=== PATIENT | female | born 1990 | race Caucasian/White ===

== ENCOUNTER 2020-11-06 23:37 | Emergency (ER) | payer BC ==
[2020-11-07 00:35] LABS: Color,Urine Red
[2020-11-07 00:36] LABS: Appearance,Urine Bloody (Clear)
[2020-11-07 00:38] LABS: Basophils # (A) 0.1 k/uL (0-0.2); Basophils % (A) 0 %; Eosinophils # (A) 0.1 k/uL (0-0.7); Eosinophils % (A) 1 %; HCT 41.5 % (34.0-46.0); HGB 14.2 gm/dL (11.4-16.0); Lymphocytes # (A) 3.1 k/uL (1.0-4.8); Lymphocytes % (A) 17 %; MCH 28.2 pg (25.0-35.0); MCHC 34.3 g/dL (31.0-37.0); MCV 82.3 fL (80.0-100.0); Monocytes # (A) 1.2 k/uL (0-1.0); Monocytes % (A) 7 %; Neutrophils # (A) 13.2 k/uL (1.3-7.7); Neutrophils % (A) 74 %; Platelet Count 328 k/uL (150-450); RBC 5.04 m/uL (3.80-5.40); RDW 14.6 % (11.5-15.5); WBC 17.9 k/uL (3.8-10.6)
[2020-11-07 00:42] LABS: Mucus,Urine Few /hpf; RBC,Urine >182 /hpf (0-5); WBC,Urine 20 /hpf (0-5)
--- NOTE | 2020-11-07 00:56 | ED ---
General Adult HPI - General Chief complaint: Vaginal Bleeding Stated complaint: Vaginal bleeding, 9 weeks Time Seen by Provider: 11/06/20 23:51 Source: patient, family, RN notes reviewed Mode of arrival: wheelchair Limitations: no limitations - History of Present Illness Initial comments: 29-year-old female presents emergency Department chief complaint of vaginal bleeding early . Patient is A1 states that she's around 9 weeks . Patient states that her SNOW GROOMER is Dr. Oliver she states her appointment is on Monday. Patient states that she started having spotting last night but states around 8 PM this evening she started having heavy vaginal bleeding with clots. She states that she's having increasing abdominal cramping and pain. Patient states that she feels like she is miscarrying. Patient has no history of anemia denies any current medications other than vitamin. Patient does have slight nausea does not request any medications. - Related Data Allergies Allergy/AdvReac Type Severity Reaction Status Date / Time No Known Allergies Allergy Verified 11/06/20 23:42 Review of Systems ROS Statement: Those systems with pertinent positive or pertinent negative responses have been documented in the HPI. ROS Other: All systems not noted in ROS Statement are negative. Past Medical History Past Medical History: No Reported History History of Any Multi-Drug Resistant Organisms: None Reported Past Surgical History: Tonsillectomy Additional Past Surgical History / Comment(s): knee, hand, Past Psychological History: No Psychological Hx Reported Smoking Status: Never smoker Past Alcohol Use History: Occasional, Rare Past Drug Use History: None Reported General Exam Limitations: no limitations General appearance: alert, in no apparent distress Head exam: Present: atraumatic, normocephalic, normal inspection ENT exam: Present: normal exam, mucous membranes moist Neck exam: Present: normal inspection. Absent: tenderness, meningismus, lymphadenopathy Respiratory exam: Present: normal lung sounds bilaterally. Absent: respiratory distress, wheezes, rales, rhonchi, stridor Cardiovascular Exam: Present: normal rhythm, tachycardia, normal heart sounds. Absent: systolic murmur, diastolic murmur, rubs, gallop, clicks GI/Abdominal exam: Present: soft, tenderness, normal bowel sounds. Absent: distended, guarding, rebound, rigid Back exam: Absent: CVA tenderness (R), CVA tenderness (L) Neurological exam: Present: alert, oriented X3 Skin exam: Present: warm, dry, intact, normal color. Absent: rash Course Vital Signs 11/06/20 11/07/20 11/07/20 23:42 00:05 00:15 Temperature 98.9 F Pulse Rate 129 H 82 88 Respiratory 16 18 16 Rate Blood Pressure 116/76 101/39 101/75 O2 Sat by Pulse 99 97 98 Oximetry 11/07/20 01:07 Temperature Pulse Rate 88 Respiratory 16 Rate Blood Pressure 111/70 O2 Sat by Pulse 98 Oximetry Medical Decision Making - Medical Decision Making 29-year-old presented for vaginal bleeding early . Patient ultrasound does not reveal an intrauterine . Patient is having an active miscarr iage. Patient's states she feels improved be discharged with follow-up with her own joint on Monday at her scheduled appointment - Lab Data Result diagrams: 11/06/20 23:55 11/06/20 23:55 Lab Results 11/06/20 11/06/20 11/06/20 Range/Units 23:55 23:55 23:55 WBC 17.9 H (3.8-10.6) k/uL RBC 5.04 (3.80-5.40) m/uL Hgb 14.2 (11.4-16.0) gm/dL Hct 41.5 (34.0-46.0) % MCV 82.3 (80.0-100.0) fL MCH 28.2 (25.0-35.0) pg MCHC 34.3 (31.0-37.0) g/dL RDW 14.6 (11.5-15.5) % Plt Count 328 (150-450) k/uL MPV 8.0 Neutrophils % 74 % Lymphocytes % 17 % Monocytes % 7 % Eosinophils % 1 % Basophils % 0 % Neutrophils # 13.2 H (1.3-7.7) k/uL Lymphocytes # 3.1 (1.0-4.8) k/uL Monocytes # 1.2 H (0-1.0) k/uL Eosinophils # 0.1 (0-0.7) k/uL Basophils # 0.1 (0-0.2) k/uL Sodium 135 L (137-145) mmol/L Potassium 4.1 (3.5-5.1) mmol/L Chloride 104 (98-107) mmol/L Carbon Dioxide 22 (22-30) mmol/L Anion Gap 9 mmol/L BUN 9 (7-17) mg/dL Creatinine 0.59 (0.52-1.04) mg/dL Est GFR (CKD-EPI)AfAm >90 (>60 ml/min/1.73 sqM) Est GFR (CKD-EPI)NonAf >90 (>60 ml/min/1.73 sqM) Glucose 105 H (74-99) mg/dL Calcium 9.2 (8.4-10.2) mg/dL Total Bilirubin 0.3 (0.2-1.3) mg/dL AST 16 (14-36) U/L ALT 11 (4-34) U/L Alkaline Phosphatase 53 (38-126) U/L Total Protein 6.8 (6.3-8.2) g/dL Albumin 4.1 (3.5-5.0) g/dL HCG, Quant 93381.8 mIU/mL Urine Color Urine Appearance (Clear) Urine RBC (0-5) /hpf Urine WBC (0-5) /hpf Urine Mucus (None) /hpf Blood Type O Positive Blood Type Recheck No Previous Record Bld Type Recheck Status [facility] ONLY 11/07/20 Range/Units 00:09 WBC (3.8-10.6) k/uL RBC (3.80-5.40) m/uL Hgb (11.4-16.0) gm/dL Hct (34.0-46.0) % MCV (80.0-100.0) fL MCH (25.0-35.0) pg MCHC (31.0-37.0) g/dL RDW (11.5-15.5) % Plt Count (150-450) k/uL MPV Neutrophils % % Lymphocytes % % Monocytes % % Eosinophils % % Basophils % % Neutrophils # (1.3-7.7) k/uL Lymphocytes # (1.0-4.8) k/uL Monocytes # (0-1.0) k/uL Eosinophils # (0-0.7) k/uL Basophils # (0-0.2) k/uL Sodium (137-145) mmol/L Potassium (3.5-5.1) mmol/L Chloride (98-107) mmol/L Carbon Dioxide (22-30) mmol/L Anion Gap mmol/L BUN (7-17) mg/dL Creatinine (0.52-1.04) mg/dL Est GFR (CKD-EPI)AfAm (>60 ml/min/1.73 sqM) Est GFR (CKD-EPI)NonAf (>60 ml/min/1.73 sqM) Glucose (74-99) mg/dL Calcium (8.4-10.2) mg/dL Total Bilirubin (0.2-1.3) mg/dL AST (14-36) U/L ALT (4-34) U/L Alkaline Phosphatase (38-126) U/L Total Protein (6.3-8.2) g/dL Albumin (3.5-5.0) g/dL HCG, Quant mIU/mL Urine Color Red Urine Appearance Bloody H (Clear) Urine RBC >182 H (0-5) /hpf Urine WBC 20 H (0-5) /hpf Urine Mucus Few H (None) /hpf Blood Type Blood Type Recheck Bld Type Recheck Status Disposition Clinical Impression: Miscarriage Disposition: HOME SELF-CARE Condition: Stable Instructions (If sedation given, give patient instructions): Miscarriage (ED) Additional Instructions: Please return to the Emergency Department if symptoms worsen or any other concerns. Is patient prescribed a controlled substance at d/c from ED?: No Referrals: None,Stated [Primary Care Provider] - 1-2 days Paul Oliver DO [Doctor of Osteopathic Medicine] - 1-2 days Time of Disposition: 02:50
[2020-11-07 01:01] LABS: ALT 11 U/L (4-34); AST 16 U/L (14-36); African American GFR (CKD) >90 (>60 ml/min/1.73 sqM); Albumin 4.1 g/dL (3.5-5.0); Alkaline Phosphatase 53 U/L (38-126); Anion Gap 9 mmol/L; Blood Urea Nitrogen 9 mg/dL (7-17); Calcium 9.2 mg/dL (8.4-10.2); Carbon Dioxide 22 mmol/L (22-30); Chloride 104 mmol/L (98-107); Glucose 105 mg/dL (74-99); Non-African American GFR(CKD) >90 (>60 ml/min/1.73 sqM); Potassium 4.1 mmol/L (3.5-5.1); Sodium 135 mmol/L (137-145); Total Bilirubin 0.3 mg/dL (0.2-1.3); Total Protein 6.8 g/dL (6.3-8.2)
[2020-11-07 01:08] VITALS: RESP 16
--- NOTE | 2020-11-07 01:23 | US ---
EXAM: US First Trimester , Transabdominal CLINICAL HISTORY: ITS.REASON US Reason: pain pain. spotting yesterday presents has heavy bleeding today with cramping, A1 TECHNIQUE: Real-time transabdominal obstetrical ultrasound of the maternal pelvis and a first trimester with image documentation. COMPARISON: No relevant prior studies available. FINDINGS: Gestation: No intrauterine visualized. Placenta/amniotic fluid: Cannot be adequately evaluated due to the early gestational age. Uterus/cervix: Heterogeneous thickened endometrium, 1.8 cm. Heterogeneous echogenic material in the cervix. No blood flow within. May represent blood products. Uterus 10.9 x 6.7 x 4.9 cm. No myometrial mass. Ovaries: Right ovary not visualized due to bowel gas. Left ovary 2.3 x 2.4 x 1.7 cm. No adnexal mass. Free fluid: No free fluid. Other findings: LMP 09/09/2020 IMPRESSION: 1. No intrauterine visualized. Differential diagnosis includes early IUP, spontaneous AB, nonvisualized ectopic . 2. Heterogeneous thickened appearance of the endometrium and cervical contents. May represent blood clot
[2020-11-07 01:50] LABS: HCG,Quantitative Serum 25069.8 mIU/mL
[2020-11-07] MEDS ORDERED: SODIUM CHLORIDE 0.9% 1,000 ML IV ONE (02:16)
[2020-11-07 03:27] VITALS: BP 104/63; PULSE 81; TEMP 98
== END 2020-11-07 03:20 | disposition home or self-care (01) ==
LOC: EC 23:37
DX: O03.9 Complete or unspecified spontaneous abortion without complication (principal); Z3A.09 9 weeks gestation of pregnancy
CPT/HCPCS: 36415; 76801; 80053; 81001; 84702; 85025; 86900; 86901; 87086; 96360; 99284

== ENCOUNTER 2020-11-09 00:23 | Observation (INO) | payer BC ==
[2020-11-09] MEDS ORDERED: SODIUM CHLORIDE 0.9% 1,000 ML IV STA (01:01)
--- NOTE | 2020-11-09 01:33 | ED ---
Female Urogenital HPI - General Chief complaint: Vaginal Bleeding Stated complaint: Vaginal Bleeding Time Seen by Provider: 11/09/20 00:31 Source: patient Mode of arrival: ambulatory Limitations: no limitations - History of Present Illness Initial comments: 29-year-old female A1 presenting for vaginal bleeding in . Patient states that she began to develop bleeding on 11/05, light spotting, no pain. Pain and heavy bleeding that was nonlocalized on 11/06 at 8PM. she states that she presented to the ER where she was told she was most likely miscarrying. Patient states she has a low of back pressure some diffuse lower abdominal tenderness. Patient states that after she presented and was evaluated and he removed some clots the bleeding slowed. Patient states that tonight around 10PM the bleeding began again, but very heavily, she felt lightheaded. Patient denies syncope. Patient denies nausea, vomiting, chest pain, dyspnea. Admits to cold intolerance. Patient has no additional complaints. Upon arrival she appear nontoxic, HR noted to be elevated but BP is stable. - Related Data Allergies Allergy/AdvReac Type Severity Reaction Status Date / Time No Known Allergies Allergy Verified 11/09/20 00:36 Review of Systems ROS Statement: Those systems with pertinent positive or pertinent negative responses have been documented in the HPI. ROS Other: All systems not noted in ROS Statement are negative. Past Medical History Past Medical History: No Reported History History of Any Multi-Drug Resistant Organisms: None Reported Past Surgical History: Tonsillectomy Additional Past Surgical History / Comment(s): knee, hand, Past Psychological History: No Psychological Hx Reported Smoking Status: Never smoker Past Alcohol Use History: Occasional, Rare Past Drug Use History: None Reported General Exam - General Exam Comments Initial Comments: General: The patient is awake and alert, in no distress Eye: Pupils are equal, round and reactive to light, extra-ocular movements are intact. No nystagmus. There is normal conjunctiva bilaterally. No signs of icterus. Ears, nose, mouth and throat: There are moist mucous membranes and no oral lesions. Neck: The neck is supple, there is no tenderness or JVD. Cardiovascular: There is a regular rate and rhythm. No murmur, rub or gallop is appreciated. Respiratory: Lungs are clear to auscultation, respirations are non-labored, breath sounds are equal. No wheezes, stridor, rales, or rhonchi. Gastrointestinal: Soft, non-distended, non-tender abdomen without masses or organomegaly noted. There is no rebound or guarding present. : significant bleeding, with large clots, slow refills/if any once the clots were removed Second exam: still more mild bleeding. clots again removed. Musculoskeletal: Normal ROM, no tenderness. Strength 5/5. Sensation intact. Radial and DP pulses equal bilaterally 2+. Neurological: A&O x 3. CN II-XII intact grossly, There are no obvious motor or sensory deficits. Coordination appears grossly intact. Speech is normal. Skin: Skin is warm and dry and no rashes or lesions are noted. Psychiatric: Cooperative, appropriate mood & affect, normal judgment. Limitations: no limitations Course Vital Signs 11/09/20 11/09/20 00:33 02:23 Temperature 98.6 F Pulse Rate 109 H 105 H Respiratory 18 17 Rate Blood Pressure 128/76 120/71 O2 Sat by Pulse 98 97 Oximetry - Reevaluation(s) Reevaluation #1: Discussed heavy bleeding with attending immediately following initial exam 11/09/20 Reevaluation #2: OBGYN Dr. Rooney consulted by Dr James-- he states he is in hospital and will evaluate the patient... 11/09/20 02:35 Reevaluation #3: Nevin beside performing and exam 11/09/20 02:48 Medical Decision Making - Medical Decision Making 29-year-old female presenting today for chief complaint of vaginal bleeding in . US 2 days prior no obvious tubal , likel miscarriage. Significantly elevated HCG. O+. Patient bleeding worsened this evening. HgB dropped significantly and patient symptomatic. Pt transfused 1 unit per attending request. Evaluated by OBGYN in the ER. Admitting for monitoring and possible D&C. Ordered NPO. - Lab Data Result diagrams: 11/09/20 01:30 11/09/20 01:25 Lab Results 11/09/20 11/09/20 11/09/20 Range/Units 01:25 01:30 02:22 WBC 11.0 H (3.8-10.6) k/uL RBC 3.50 L (3.80-5.40) m/uL Hgb 9.5 L D (11.4-16.0) gm/dL Hct 28.7 L (34.0-46.0) % MCV 81.8 (80.0-100.0) fL MCH 27.2 (25.0-35.0) pg MCHC 33.2 (31.0-37.0) g/dL RDW 14.8 (11.5-15.5) % Plt Count 278 (150-450) k/uL MPV 8.1 Neutrophils % 75 % Lymphocytes % 18 % Monocytes % 5 % Eosinophils % 1 % Basophils % 0 % Neutrophils # 8.2 H (1.3-7.7) k/uL Lymphocytes # 1.9 (1.0-4.8) k/uL Monocytes # 0.6 (0-1.0) k/uL Eosinophils # 0.1 (0-0.7) k/uL Basophils # 0.0 (0-0.2) k/uL Sodium 137 (137-145) mmol/L Potassium 3.8 (3.5-5.1) mmol/L Chloride 106 (98-107) mmol/L Carbon Dioxide 23 (22-30) mmol/L Anion Gap 8 mmol/L BUN 16 (7-17) mg/dL Creatinine 0.66 (0.52-1.04) mg/dL Est GFR (CKD-EPI)AfAm >90 (>60 ml/min/1.73 sqM) Est GFR (CKD-EPI)NonAf >90 (>60 ml/min/1.73 sqM) Glucose 108 H (74-99) mg/dL Calcium 8.6 (8.4-10.2) mg/dL Total Bilirubin 0.1 L (0.2-1.3) mg/dL AST 14 (14-36) U/L ALT 9 (4-34) U/L Alkaline Phosphatase 48 (38-126) U/L Total Protein 5.4 L (6.3-8.2) g/dL Albumin 3.1 L (3.5-5.0) g/dL HCG, Quant 39860.5 mIU/mL Urine Color Yellow Urine Appearance Clear (Clear) Urine pH 5.5 (5.0-8.0) Ur Specific Jackson 1.009 (1.001-1.035) Urine Protein Negative (Negative) Urine Glucose (UA) Negative (Negative) Urine Ketones Negative (Negative) Urine Blood Large H (Negative) Urine Nitrite Negative (Negative) Urine Bilirubin Negative (Negative) Urine Urobilinogen <2.0 (<2.0) mg/dL Ur Leukocyte Esterase Negative (Negative) Urine RBC >182 H (0-5) /hpf Ur Squamous Epith Cells 1 (0-4) /hpf Urine Bacteria Rare H (None) /hpf Urine Mucus Rare H (None) /hpf Disposition Clinical Impression: Vaginal bleeding, Anemia, Symptomatic anemia, Miscarriage Disposition: ADMITTED IP TO THIS [facility] Condition: Stable Is patient prescribed a controlled substance at d/c from ED?: No Referrals: None,Stated [Primary Care Provider] - 1-2 days Time of Disposition: 02:27 Decision to Admit Reason: Admit from EC Decision Date: 11/09/20 Decision Time: 02:27
[2020-11-09 02:04] LABS: Basophils % (A) 0 %; Eosinophils # (A) 0.1 k/uL (0-0.7); Eosinophils % (A) 1 %; HCT 28.7 % (34.0-46.0); Lymphocytes # (A) 1.9 k/uL (1.0-4.8); Lymphocytes % (A) 18 %; MCH 27.2 pg (25.0-35.0); MCHC 33.2 g/dL (31.0-37.0); MCV 81.8 fL (80.0-100.0); Mean Platelet Volume 8.1; Monocytes # (A) 0.6 k/uL (0-1.0); Monocytes % (A) 5 %; Neutrophils # (A) 8.2 k/uL (1.3-7.7); Neutrophils % (A) 75 %; Platelet Count 278 k/uL (150-450); RDW 14.8 % (11.5-15.5)
[2020-11-09 02:07] LABS: HGB 9.5 gm/dL (11.4-16.0)
[2020-11-09 02:24] LABS: ALT 9 U/L (4-34); AST 14 U/L (14-36); African American GFR (CKD) >90 (>60 ml/min/1.73 sqM); Albumin 3.1 g/dL (3.5-5.0); Alkaline Phosphatase 48 U/L (38-126); Anion Gap 8 mmol/L; Blood Urea Nitrogen 16 mg/dL (7-17); Calcium 8.6 mg/dL (8.4-10.2); Carbon Dioxide 23 mmol/L (22-30); Chloride 106 mmol/L (98-107); Glucose 108 mg/dL (74-99); Non-African American GFR(CKD) >90 (>60 ml/min/1.73 sqM); Potassium 3.8 mmol/L (3.5-5.1); Sodium 137 mmol/L (137-145); Total Bilirubin 0.1 mg/dL (0.2-1.3); Total Protein 5.4 g/dL (6.3-8.2)
[2020-11-09 02:35] LABS: Appearance,Urine Clear (Clear); Bacteria,Urine Rare /hpf; Bilirubin,Urine Negative (Negative); Blood,Urine Large (Negative); Color,Urine Yellow; Glucose,Urine (UA) Negative (Negative); Ketones,Urine Negative (Negative); Leukocyte Esterase,Urine Negative (Negative); Mucus,Urine Rare /hpf; Nitrite,Urine Negative (Negative); PH, Urine 5.5 (5.0-8.0); Protein,Urine Negative (Negative); RBC,Urine >182 /hpf (0-5); Specific Gravity,Urine 1.009 (1.001-1.035); Squamous Epithelial Cell,Urine 1 /hpf (0-4); Urobilinogen,Urine <2.0 mg/dL (<2.0)
[2020-11-09 02:41] LABS: HCG,Quantitative Serum 13006.5 mIU/mL
[2020-11-09] MEDS ORDERED: NALOXONE 0.4 MG/ML 1 ML VIAL IV PRN (02:41)
[2020-11-09] MEDS ORDERED: LACTATED RINGERS 1,000 ML IV ONE ×2 (03:11→17:09)
--- NOTE | 2020-11-09 03:26 | P.HPOB ---
History of Present Illness H&P Date: 11/09/20 Chief Complaint: Bleeding and . This patient is a pleasant 29-year-old 3 para 1 female estimated gestational age approximately 9 weeks who initially presented to the emergency department apparently Monday evening with complaints of cramping and bleeding and known . Patient's primary medical lab technician is Dr. Oliver and she has not had a visit with him yet and then had no testing done. The emergency department Monday night they did an ultrasound which showed endometrium to be thickened and heterogeneous to 1.8 cm and beta-hCG at that time was 25,069. Patient's hemoglobin that time was around 14. Patient was sent home states that she began bleeding much heavier today and repeat a to the emergency department early this morning. Patient's repeat beta-hCG is now 13,006. The emergency department did not repeat her ultrasound. Initially upon presentation she was bleeding heavy apparently however this has subsided. Review of Systems Genitourinary: Reports as per HPI, Reports abnormal vaginal bleeding, Reports Past Medical History Past Medical History: No Reported History History of Any Multi-Drug Resistant Organisms: None Reported Past Surgical History: Tonsillectomy Additional Past Surgical History / Comment(s): knee, hand, Past Anesthesia/Blood Transfusion Reactions: No Reported Reaction Past Psychological History: No Psychological Hx Reported Smoking Status: Never smoker Past Alcohol Use History: None Reported, Occasional, Rare Past Drug Use History: None Reported Medications and Allergies Allergies Allergy/AdvReac Type Severity Reaction Status Date / Time No Known Allergies Allergy Verified 11/09/20 00:36 Exam Vital Signs Temp Pulse Resp BP Pulse Ox 11/09/20 02:23 105 H 17 120/71 97 11/09/20 00:33 98.6 F 109 H 18 128/76 98 Intake and Output 11/08/20 11/08/20 11/09/20 14:59 22:59 06:59 Other: Weight 79.379 kg - OBG Physical Exam Vulva: both: normal Vagina: Speculum exam shows some dark red blood there are no large clots or active bleeding at this time. Vagina: normal moisture, no discharge Cervix: no lesion, no discharge Uterus: normal size, normal contour Results Result Diagrams: 11/09/20 01:30 11/09/20 01:25 Abnormal Lab Results - Last 24 Hours (Table) 11/09/20 11/09/20 11/09/20 Range/Units 01:25 01:30 02:22 WBC 11.0 H (3.8-10.6) k/uL RBC 3.50 L (3.80-5.40) m/uL Hgb 9.5 L D (11.4-16.0) gm/dL Hct 28.7 L (34.0-46.0) % Neutrophils # 8.2 H (1.3-7.7) k/uL Glucose 108 H (74-99) mg/dL Total Bilirubin 0.1 L (0.2-1.3) mg/dL Total Protein 5.4 L (6.3-8.2) g/dL Albumin 3.1 L (3.5-5.0) g/dL Urine Blood Large H (Negative) Urine RBC >182 H (0-5) /hpf Urine Bacteria Rare H (None) /hpf Urine Mucus Rare H (None) /hpf Assessment and Plan Assessment: This is a pleasant 29-year-old 3 para 1 female estimated gestational age approximately 9 weeks with what appears to be a spontaneous . Patient did have heavier bleeding earlier today and initially on presentation however this appears to have subsided. I had a long discussion with the patient and her in regards to management. I believe she does need another ultrasound done therefore I'm going to admit her to the hospital for observation and repeat her ultrasound first thing tomorrow morning. If the lining is still thickened her she continues to have significant bleeding then we would proceed with a suction D&C. If the bleeding remains as it is now and the ultrasound does not show evidence of significant tissue than I would just plan on following her with outpatient beta hCGs. We will keep her nothing by mouth at this time. Patient and are agreeable to this plan. (1) Spontaneous Current Visit: Yes Status: Acute Code(s): O03.9 - COMPLETE OR UNSP SPONTANEOUS WITHOUT COMPLICATION SNOMED Code(s): 92056279
--- NOTE | 2020-11-09 05:50 | P.PN ---
Progress Note - Text Progress Note Date: 11/09/20 Patient is resting without new complaints. She has minimal bleeding on her delvin-pad. Vital signs are stable she's afebrile. In general she is feeling much better. Plan is to check an ultrasound this morning, if it is without significant findings of retained products she should be able to be discharged home follow up with serial hCGs with Dr. Oliver. Blood type is Rh+.
--- NOTE | 2020-11-09 09:14 | US ---
EXAMINATION TYPE: US transvaginal DATE OF EXAM: 11/09/2020 COMPARISON: 11/07/2020 CLINICAL HISTORY: 29-year-old female Spontaneous . ; vaginal bleeding in x 5 da ys TECHNIQUE: Transvaginal sonographic images were medically necessary to better assess the following an atomy: endometrium, and per physician's order Date of LMP: FINDINGS: EXAM MEASUREMENTS: Uterus: 10.0 x 8.3 x 5.1 cm Endometrial Stripe: 2.1 cm Right Ovary: 3.5 x 2.6 x 2.0 cm Left Ovary: 4.4 x 1.8 x 1.9 cm 1. Uterus: Anteverted 2. Endometrium: Complex fluid areas seen in upper endometrium and if it is gestational sac, then arline sure = 5weeks/ 6days. Inferior oval complex area also seen with peripheral color flow associated with this inferior endometrial complex area. 3. Right Ovary: multiple small follicles seen 4. Left Ovary: multifollicular with largest as simple cyst = 2.5 x 1.8 x 1.7cm Color flow is seen in both ovaries 5. Bilateral Adnexa: wnl 6. Posterior cul-de-sac: wnl IMPRESSION: 1. Heterogeneous area measuring 1.9 x 1.7 cm along the fundal endometrium and a second heterogeneous area along the lower uterine segment measuring 1.8 x 0.7 cm. No normal intrauterine is seen . In the setting of a positive status, findings suggest failed . Correlate with se rial beta hCGs to confirm. 2. Follicular change in both ovaries with a dominant follicle on the left measuring 2.5 cm.
[2020-11-09] MEDS ORDERED: IV FLUID CONTINUATION 1,000 ML IV ONE (15:30)
[2020-11-09] MEDS ORDERED: ONDANSETRON 4 MG/2 ML VIAL ONE (15:32)
[2020-11-09] MEDS ORDERED: DEXAMETHASONE SOD PHOSPHATE 4 MG/ML 1 ML VIAL IVP ONE (15:39)
[2020-11-09] MEDS ORDERED: fentaNYL (PF) 50 MCG/ML 2 ML AMP ONE (16:48)
[2020-11-09] MEDS ORDERED: PROPOFOL 10 MG/ML 20 ML VIAL IV ONE (16:48)
[2020-11-09] MEDS ORDERED: MIDAZOLAM 2 MG/2 ML VIAL ONE (16:48)
--- NOTE | 2020-11-09 17:20 | P.OP ---
Date of Procedure: 11/09/20 Preoperative Diagnosis: Incomplete AB Postoperative Diagnosis: Same Procedure(s) Performed: Suction D&C Anesthesia: JOHANAA Surgeon: Paul Oliver Estimated Blood Loss (ml): 100 Pathology: other (Uterine curettings/products of conception) Condition: stable Disposition: floor Operative Findings: Pathology pending Description of Procedure: Patient was taken to the operative suite where a general anesthetic was found be adequate. She was prepped and draped in the normal sterile fashion placed in dorsal lithotomy position. Initially a weighted speculum was inserted into the vagina and the anterior lip of the cervix was identified and grasped with an Al lis clamp. Cervix was then verified dilated. A 9 curved tip suction catheter was then inserted and suction was applied. Using a clockwise motion products of conception were removed and this was done approximately 3-4 times. Once this was completed gentle sharp curettings of the endometrium were done to verify no retained products and then 2 more passes with the suction tip catheter were then done. All tissues collected and sent to pathology for evaluation. Once this was completed, patient was taken to the recovery room in stable and satisfactory condition and no bleeding is noted at the conclusion of the procedure.
[2020-11-09 21:24] VITALS: BP 107/70; PULSE 88; RESP 16; TEMP 98.7
== END 2020-11-09 21:15 | disposition home or self-care (01) ==
LOC: EC 00:23 → 4FBP 03:00
PROVIDERS: ADMIT Obstetrics & Gynecology; ATTEND Obstetrics & Gynecology
DX: O03.4 Incomplete spontaneous abortion without complication (principal); D64.9 Anemia, unspecified; Z20.822 Contact with and (suspected) exposure to COVID-19
CPT/HCPCS: 59812; 96360; 99285; 36415; 86900; 86901; 88305; 80053; 85025; 86850; 81001; 84702; 87635; 76830; G0378; J2250; J1100; J2405; J3010; J2704

== ENCOUNTER → 2021-03-17 | Outpatient (CLI) | payer BC | END | disposition home or self-care (01) | LOC: LABWHC1 09:09 | PROVIDERS: ATTEND Obstetrics & Gynecology | DX: Z34.81 Encounter for supervision of other normal pregnancy, first trimester (principal); Z3A.00 Weeks of gestation of pregnancy not specified | CPT/HCPCS: 36415; 84702 ==

== ENCOUNTER → 2021-03-19 | Outpatient (CLI) | payer BC | END | disposition home or self-care (01) | LOC: LABWHC1 07:08 | PROVIDERS: ATTEND Obstetrics & Gynecology | DX: O02.1 Missed abortion (principal); Z3A.00 Weeks of gestation of pregnancy not specified | CPT/HCPCS: 36415; 84702 ==

== ENCOUNTER → 2021-04-16 | Outpatient (CLI) | payer BC ==
--- NOTE | 2021-04-16 10:18 | US ---
EXAMINATION TYPE: Transabdominal DATE OF EXAM: 04/16/2021 9:57 AM COMPARISON: NONE CLINICAL HISTORY: Stat hold and call; Viability [id number]. Pt states office unable to obtain heart tones EXAM PERFORMED: Transabdominal (TA) EXAM MEASUREMENTS: GESTATIONAL AGE / DATING Physician Established: Not yet established Dates by LMP: (8 weeks/6 days) EDC: 11/20/2021 Dates by First Scan: No previous this is first scan Dates by Current Scan for: (8 weeks/0 days) EDC: 11/26/2021 MATERNAL ANATOMY Uterus: 8.9 x 7.4 x 7.6 cm Right Ovary: 2.0 x 1.9 x 2.2 cm Left Ovary: 2.9 x 1.8 x 2.4 cm Post CDS / Adnexa: wnl Presence of free fluid: No Presence of corpus luteal cyst: Left Ovary= 2.1 x 1.5 x 1.4 cm Presence of subchorionic bleed: No GESTATION / SURVEY CRL: 1.7 cm (8 weeks/0 days) MSD: wnl Yolk Sac (normal less than 6mm): 8mm Heart Rate: -- bpm IUP: Demise Date of LMP: 02/02/2021 Probable 8 wk demise/ Abnormally large yolk sac Results called to Blanche at 's office at time of exam IMPRESSION: 1. Single intrauterine gestation estimated at 8 weeks 0 days gestation based on crown-rump length. 2. No cardiac activity is identified. Intrauterine demise is not excluded. Correlate with the b eta hCG.
== END | disposition home or self-care (01) ==
LOC: RADUSWWP 09:42
PROVIDERS: ATTEND Obstetrics & Gynecology
DX: Z3A.08 8 weeks gestation of pregnancy (principal)
CPT/HCPCS: 76801

== ENCOUNTER → 2021-04-17 | Outpatient (CLI) | payer BC ==
[2021-04-17 09:02] LABS: Basophils % (A) 1 %; Eosinophils # (A) 0.1 k/uL (0-0.7); Eosinophils % (A) 1 %; HCT 42.9 % (34.0-46.0); HGB 14.2 gm/dL (11.4-16.0); Lymphocytes # (A) 2.3 k/uL (1.0-4.8); Lymphocytes % (A) 29 %; MCH 27.4 pg (25.0-35.0); MCHC 33.1 g/dL (31.0-37.0); MCV 82.7 fL (80.0-100.0); Mean Platelet Volume 7.9; Monocytes # (A) 0.5 k/uL (0-1.0); Monocytes % (A) 6 %; Neutrophils # (A) 4.8 k/uL (1.3-7.7); Neutrophils % (A) 60 %; Platelet Count 305 k/uL (150-450); RBC 5.19 m/uL (3.80-5.40); RDW 15.4 % (11.5-15.5); WBC 7.9 k/uL (3.8-10.6)
== END | disposition home or self-care (01) ==
LOC: LABPAT 04-16 11:15
PROVIDERS: ATTEND Obstetrics & Gynecology
DX: Z01.812 Encounter for preprocedural laboratory examination (principal)
CPT/HCPCS: 85025

== ENCOUNTER 2021-04-19 11:26 | Day surgery (SDC) | payer BC ==
[2021-04-16 12:41] VITALS: BMI 26.9
[~2021-04-19 11:26] MED LIST: DEXAMETHASONE SOD PHOSPHATE 4 MG/ML 1 ML VIAL IV ONE; LACTATED RINGERS 1,000 ML IV SCH; LIDOCAINE 1% (10MG/ML) FOR IV START INTRADERMA PRN; ONDANSETRON 4 MG/2 ML VIAL IVP ONE; Pre Op ABX Message 1 EACH MISC MISCELLANE ONE
[2021-04-19] MEDS ORDERED: MIDAZOLAM 2 MG/2 ML VIAL ONE (12:25)
[2021-04-19] MEDS ORDERED: PROPOFOL 10 MG/ML 20 ML VIAL IV ONE (12:25)
[2021-04-19] MEDS ORDERED: fentaNYL (PF) 50 MCG/ML 2 ML AMP ONE (12:25)
[2021-04-19] MEDS ORDERED: LIDOCAINE 1% INJ 10MG/ML (20 ML MDV) ONE (12:25)
[2021-04-19] MEDS ORDERED: ePHEDrine SULFATE/0.9% NACL/PF 50 MG/5 ML SYRINGE IV ONE (12:25)
--- NOTE | 2021-04-19 12:59 | P.OP ---
Date of Procedure: 04/19/21 Postoperative Diagnosis: Missed AB Procedure(s) Performed: Same Implants: Suction D&C Anesthesia: JOHANAA Surgeon: Paul Oliver Estimated Blood Loss (ml): 100 Pathology: other (Products of conception) Condition: stable Disposition: same day Operative Findings: Pathology pending sent for genetic studies Description of Procedure: Patient was taken to the operative suite where a general anesthetic was found be adequate. She was prepped and draped in normal sterile fashion placed in dorsal lithotomy position. Initially a weighted speculum was inserted in the vagina and the anterior lip of cervix identified grasped with an Allis clamp. Cervix then dilated and then using a 9 curved tip suction catheter was placed and suction was applied. Multiple passes were made with extrusion of products of conception. Once it was completed gentle sharp curettings were done to verify no further products and then 2 more passes with the catheter tip done under suction guidance. Minimal bleeding is noted at the conclusion the procedure. All instruments were then removed. Sponge, lap, needle scrub were all correct 2. Patient tolerated surgery very well. Patient was then taken to the recovery room in stable and satisfactory condition. Plan - Discharge Summary Discharge Rx Participant: No New Discharge Prescriptions: New Ibuprofen [Motrin] 600 mg PO Q6HR PRN #30 tab PRN Reason: Pain No Action Qut-Lqma-Uclop Acid [-U Capsule (formulary)] 1 cap PO DAILY Discharge Medication List Eot-Yffo-Whkxj Acid [-U Capsule (formulary)] 1 cap PO DAILY 04/16/21 [History] Ibuprofen [Motrin] 600 mg PO Q6HR PRN #30 tab 04/19/21 [Rx] Follow up Appointment(s)/Referral(s): Paul Oliver DO [Doctor of Osteopathic Medicine] - 2 Weeks Activity/Diet/Wound Care/Special Instructions: No heavy Lifting, limit stairs and driving, and pelvic rest. If any high temperatures, heavy bleeding, or severe pain call my office Discharge Disposition: HOME SELF-CARE
[2021-04-19 13:16] VITALS: RESP 16; TEMP 96.8
[2021-04-19] MEDS ORDERED: HYDROmorphone 0.5 MG/0.5 ML SYRINGE IVP ONE (13:17)
[2021-04-19 14:39] VITALS: BP 104/68; PULSE 64
--- NOTE | 2021-04-21 09:31 | P.HPOB ---
History of Present Illness H&P Date: 04/21/21 Chief Complaint: Missed AB Patient is 30-year-old female who had 8 weeks has a missed AB. Nonviable is noted on ultrasound. Risks/benefits/alternatives to a suction D&C were reviewed with the patient in detail and all questions were answered for her prior to proceeding to the operating room. She was noted to have a viable at approximately 6 weeks and at her normal visit in the office was noted have a demise of about 10 or 11 weeks along but the baby measured 8 weeks. She has history of multiple miscarriages and genetics will be ordered. All the questions are answered for her prior to procedure. Past Medical History Past Medical History: No Reported History Additional Past Medical History / Comment(s): miscarriage History of Any Multi-Drug Resistant Organisms: None Reported Past Surgical History: Tonsillectomy Additional Past Surgical History / Comment(s): arthroscopic left knee x2, repair of fx. right hand Past Anesthesia/Blood Transfusion Reactions: No Reported Reaction Past Psychological History: No Psychological Hx Reported Smoking Status: Never smoker Past Alcohol Use History: None Reported Past Drug Use History: None Reported - Past Family History Mother Family Medical History: No Reported History Medications and Allergies Home Medications Medication Instructions Recorded Confirmed Type Uul-Reey-Bmclm Acid 1 cap PO DAILY 04/16/21 04/16/21 History [-U Capsule (formulary)] Ibuprofen [Motrin] 600 mg PO Q6HR PRN #30 tab 04/19/21 Rx Allergies Allergy/AdvReac Type Severity Reaction Status Date / Time No Known Allergies Allergy Verified 04/16/21 13:00 Exam Osteopathic Statement: *. No significant issues noted on an osteopathic structural exam other than those noted in the History and Physical/Consult. - OBG Physical Exam Breast: both: normal (no masses) Abdomen: bowel sounds normal, no diffuse tenderness, no bruit present, no guarding noted, no hepatomegaly, no splenomegaly, no mass Vulva: both: normal Vagina: normal moisture, no discharge Cervix: no lesion, no discharge Uterus: normal size, normal contour Adnexa: both: normal Anus/Rectum: normal perianal skin, no rectal mass, no hemorrhoids, heme negative
== END 2021-04-19 14:55 | disposition home or self-care (01) ==
LOC: OR 11:26
PROVIDERS: ATTEND Obstetrics & Gynecology
DX: O02.1 Missed abortion (principal); O46.90 Antepartum hemorrhage, unspecified, unspecified trimester; Z79.1 Long term (current) use of non-steroidal anti-inflammatories (NSAID)
CPT/HCPCS: 59820; 88305; J2250; J1100; J2405; J2001; J3010; J2704; J1170

== ENCOUNTER → 2021-06-11 | Outpatient (CLI) | payer BC ==
[2021-06-11 18:33] LABS: Progesterone 2.8 ng/mL
[2021-06-11 21:51] LABS: Follicle Stimulating Hormone 3.4 mIU/mL; Prolactin 6.6 ng/mL (2.800-29.200); T4, Free (Free Thyroxine) 1.2 ng/dL (0.800-1.800)
== END | disposition home or self-care (01) ==
LOC: LABWHC1 09:52
PROVIDERS: ATTEND Obstetrics & Gynecology
DX: Z13.29 Encounter for screening for other suspected endocrine disorder (principal); N97.0 Female infertility associated with anovulation; N96 Recurrent pregnancy loss
CPT/HCPCS: 36415; 81050; 81240; 81241; 82670; 83001; 83002; 84144; 84146; 84156; 84439; 84443; 84481; 85613; 85730; 86800; 87086

== ENCOUNTER 2022-07-22 19:37 | Emergency (ER) | payer BC ==
[2022-07-22 19:44] VITALS: TEMP 97.8
[2022-07-22] MEDS ORDERED: PANTOPRAZOLE 40 MG/10 ML VIAL IVP STA (22:06)
[2022-07-22] MEDS ORDERED: SODIUM CHLORIDE 0.9% 1,000 ML IV STA (22:06)
[2022-07-22] MEDS ORDERED: ONDANSETRON 4 MG/2 ML VIAL IVP STA (22:06)
--- NOTE | 2022-07-22 22:26 | ED ---
General Adult HPI - General Chief complaint: Abdominal Pain Stated complaint: abd pain Time Seen by Provider: 07/22/22 21:53 Source: patient, RN notes reviewed, old records reviewed Mode of arrival: ambulatory Limitations: no limitations - History of Present Illness Initial comments: Patient is a 31-year-old female who presents emergency Department complaining of epigastric abdominal pain, intermittent chest pain, pleuritic pain ongoing for a few days. She recently gave back in April. Is currently July. No complications. Has no past medical history. States she has noticed numbness lower chest pain, epigastric abdominal pain ongoing for a few days and has had 1 or 2 episodes of nonbilious nonbloody emesis. Denies any diarrhea. Denies any fevers, chills, cough. Denies shortness of breath but does endorse substernal chest pain that is worse on deep inspiration. Also states that seems to radiate on the inferior aspect of both ribs, somewhat more in the chest and the abdomen. Denies any right shoulder pain. Denies any cough. Denies any abdominal surgeries. Denies any cardiac history and family members. No history of blood clots. Was seen at urgent care yesterday and then discharged home. States does not improved and presents today over concern for possible cardiac or abdominal etiology for her current pain.Describes the pain as achy, sharp. No known palliative or provocative factors. - Related Data Home Medications Medication Instructions Recorded Confirmed Uxw-Ytsy-Ttnet Acid 1 cap PO DAILY 04/16/21 04/16/21 [-U Capsule (formulary)] Previous Rx's Medication Instructions Recorded Ibuprofen [Motrin] 600 mg PO Q6HR PRN #30 tab 04/19/21 Allergies Allergy/AdvReac Type Severity Reaction Status Date / Time No Known Allergies Allergy Verified 07/22/22 19:44 Review of Systems ROS Statement: Those systems with pertinent positive or pertinent negative responses have been documented in the HPI. Review of Systems: CONST: Denies fever EYES: Denies blurry vision ENT: Denies nasal congestion C/V: Endorses substernal chest pain. RESP: Denies shortness of breath GI: Endorses abdominal pain : Denies dysuria SKIN: Denies rash. MSK: Denies joint pain. NEURO: Denies headache ROS Other: All systems not noted in ROS Statement are negative. Past Medical History Past Medical History: No Reported History Additional Past Medical History / Comment(s): miscarriage History of Any Multi-Drug Resistant Organisms: None Reported Past Surgical History: Tonsillectomy Additional Past Surgical History / Comment(s): arthroscopic left knee x2, repair of fx. right hand Past Anesthesia/Blood Transfusion Reactions: No Reported Reaction Past Psychological History: No Psychological Hx Reported Smoking Status: Never smoker Past Alcohol Use History: None Reported Past Drug Use History: None Reported - Past Family History Mother Family Medical History: No Reported History General Exam - General Exam Comments Initial Comments: General: Appears in no acute distress. HEAD: Normal with no signs of head trauma. EYES: PERRLA, EOMI, conjunctiva normal, no discharge. ENT: Hearing grossly intact, normal oropharynx. RESPIRATORY: Clear breath sounds bilaterally. No wheezes, rales, or rhonchi. C/V: Regular rate and rhythm. S1 and S2 auscultated, no edema, peripheral pulses 2+ and intact throughout. substernal chest pain not reproducible on palpation. ABD: Abdomen is soft, nondistended. Some mild tenderness to palpation in the epigastric region. No guarding. No peritoneal signs. Mild right upper quadrant tenderness to palpation as well. Patient also has no rebound tenderness. No peritoneal signs. EXT: Normal range of motion, no obvious deformity SKIN: No rashes or lesions observed on exposed skin. NEURO: Alert and oriented 4. Limitations: no limitations Course Vital Signs 07/22/22 19:43 Temperature 97.8 F Pulse Rate 91 Respiratory 18 Rate Blood Pressure 112/67 O2 Sat by Pulse 97 Oximetry Medical Decision Making - Medical Decision Making Based on patient's presentation and physical exam, I'm concerned for was showing suspected to be epigastric, abdominal etiology for her current symptoms including possible hepatobiliary pathology. However I cannot rule out the possibility of cardiac disease or possible pulmonary embolism concerning her recent and delivery as well as her pleuritic substernal chest pain with atypical radiation. Vital signs are within acceptable limits. We will obtain cardio pulmonary as well as abdominal laboratory studies. We will obtain a right upper quadrant ultrasound as well. She was in agreement this plan. She states she is relatively comfortable at this time, and will be given IV fluids, Protonix, Zofran. Patient was in agreement this plan. Patient's EKG showed no signs of acute ischemia. Patient's chest x-ray as interpreted by myself reveals no acute cardiopulmonary process. No infiltrate, pneumothorax, bony traumatic injury. Patient's gallbladder ultrasound revealed findings concerning for acute cholecystitis. There are multiple small gallstones. Patient does have a dilated CBD of 0.94 cm. Patient's laboratory studies are remarkable for leukocytosis of 16.3. D-dimer is elevated to 1.22. Troponin is undetectable. Patient has elevated AST, ALT, alk phos. Bilirubin and pancreatic enzymes are within normal limits. Urinalysis is a contaminated catch. I have to the patient's on the results of her workup. I explained that I'm concerned for cholecystitis as well as possible choledocholithiasis with the CBD being dilated. Patient will require transfer as we do not have GI services present for evaluation for potential ERCP. She will be placed on Zosyn antib iotics at this time. We will obtain CT angiogram of the chest as well as CT of the abdomen and pelvis. She was in agreement this plan. CT imaging was all interpreted by myself. CT PE as interpreted by myself shows no pulmonary embolism. No acute infiltrate. No bony traumatic process. CT abdomen and pelvis was also obtained, and revealed an enlarged gallbladder concerning for cholecystitis. Small amount of pericholecystic fluid present. No other obvious process. I did recheck to our on-call surgeon, Dr. Dawson who recommended transfer for evaluation for ERCP. I was in agreement with this plan. We do not have GI services and therefore patient requires transfer. I updated the patient. I would like to transfer at this time. She was in agreement this plan. We reached out to [facility] who accepted the patient. Accepting ER physician is Dr. Cody. Patient was therefore transferred in stable condition. - Lab Data Result diagrams: 07/22/22 22:25 07/22/22 22:25 Lab Results 07/22/22 07/22/22 07/22/22 Range/Units 22:25 22:25 22:25 WBC 16.3 H (3.8-10.6) k/uL RBC 5.37 (3.80-5.40) m/uL Hgb 14.1 (11.4-16.0) gm/dL Hct 43.1 (34.0-46.0) % MCV 80.3 (80.0-100.0) fL MCH 26.3 (25.0-35.0) pg MCHC 32.7 (31.0-37.0) g/dL RDW 14.2 (11.5-15.5) % Plt Count 352 (150-450) k/uL MPV 8.5 Neutrophils % 80 % Lymphocytes % 10 % Monocytes % 8 % Eosinophils % 0 % Basophils % 0 % Neutrophils # 13.1 H (1.3-7.7) k/uL Lymphocytes # 1.7 (1.0-4.8) k/uL Monocytes # 1.2 H (0-1.0) k/uL Eosinophils # 0.1 (0-0.7) k/uL Basophils # 0.1 (0-0.2) k/uL PT 10.2 (9.0-12.0) sec INR 0.9 (<1.2) APTT 26.4 (22.0-30.0) sec D-Dimer 1.22 H (<0.60) mg/L FEU Sodium (137-145) mmol/L Potassium (3.5-5.1) mmol/L Chloride (98-107) mmol/L Carbon Dioxide (22-30) mmol/L Anion Gap mmol/L BUN (7-17) mg/dL Creatinine (0.52-1.04) mg/dL Est GFR (CKD-EPI)AfAm (>60 ml/min/1.73 sqM) Est GFR (CKD-EPI)NonAf (>60 ml/min/1.73 sqM) Glucose (74-99) mg/dL Plasma Lactic Acid Edy (0.7-2.0) mmol/L Calcium (8.4-10.2) mg/dL Total Bilirubin (0.2-1.3) mg/dL AST (14-36) U/L ALT (4-34) U/L Alkaline Phosphatase (38-126) U/L Troponin I (0.000-0.034) ng/mL Total Protein (6.3-8.2) g/dL Albumin (3.5-5.0) g/dL Amylase (30-110) U/L Lipase (23-300) U/L Urine Color Yellow Urine Appearance Cloudy H (Clear) Urine pH 6.0 (5.0-8.0) Ur Specific [place] 1.032 (1.001-1.035) Urine Protein Trace H (Negative) Urine Glucose (UA) Negative (Negative) Urine Ketones 2+ H (Negative) Urine Blood Negative (Negative) Urine Nitrite Negative (Negative) Urine Bilirubin Negative (Negative) Urine Urobilinogen 2.0 (<2.0) mg/dL Ur Leukocyte Esterase Large H (Negative) Urine RBC 3 (0-5) /hpf Urine WBC 29 H (0-5) /hpf Ur Squamous Epith Cells 6 H (0-4) /hpf Urine Bacteria Moderate H (None) /hpf Urine Mucus Few H (None) /hpf 07/22/22 07/22/22 07/22/22 Range/Units 22:25 22:25 22:25 WBC (3.8-10.6) k/uL RBC (3.80-5.40) m/uL Hgb (11.4-16.0) gm/dL Hct (34.0-46.0) % MCV (80.0-100.0) fL MCH (25.0-35.0) pg MCHC (31.0-37.0) g/dL RDW (11.5-15.5) % Plt Count (150-450) k/uL MPV Neutrophils % % Lymphocytes % % Monocytes % % Eosinophils % % Basophils % % Neutrophils # (1.3-7.7) k/uL Lymphocytes # (1.0-4.8) k/uL Monocytes # (0-1.0) k/uL Eosinophils # (0-0.7) k/uL Basophils # (0-0.2) k/uL PT (9.0-12.0) sec INR (<1.2) APTT (22.0-30.0) sec D-Dimer (<0.60) mg/L FEU Sodium 140 (137-145) mmol/L Potassium 3.9 (3.5-5.1) mmol/L Chloride 106 (98-107) mmol/L Carbon Dioxide 26 (22-30) mmol/L Anion Gap 8 mmol/L BUN 23 H (7-17) mg/dL Creatinine 0.85 (0.52-1.04) mg/dL Est GFR (CKD-EPI)AfAm >90 (>60 ml/min/1.73 sqM) Est GFR (CKD-EPI)NonAf >90 (>60 ml/min/1.73 sqM) Glucose 110 H (74-99) mg/dL Plasma Lactic Acid Edy 0.8 (0.7-2.0) mmol/L Calcium 9.7 (8.4-10.2) mg/dL Total Bilirubin 0.9 (0.2-1.3) mg/dL AST 426 H (14-36) U/L ALT 220 H (4-34) U/L Alkaline Phosphatase 147 H (38-126) U/L Troponin I <0.012 (0.000-0.034) ng/mL Total Protein 7.3 (6.3-8.2) g/dL Albumin 4.7 (3.5-5.0) g/dL Amylase 49 (30-110) U/L Lipase 94 (23-300) U/L Urine Color Urine Appearance (Clear) Urine pH (5.0-8.0) Ur Specific [place] (1.001-1.035) Urine Protein (Negative) Urine Glucose (UA) (Negative) Urine Ketones (Negative) Urine Blood (Negative) Urine Nitrite (Negative) Urine Bilirubin (Negative) Urine Urobilinogen (<2.0) mg/dL Ur Leukocyte Esterase (Negative) Urine RBC (0-5) /hpf Urine WBC (0-5) /hpf Ur Squamous Epith Cells (0-4) /hpf Urine Bacteria (None) /hpf Urine Mucus (None) /hpf - EKG Data -: EKG Interpreted by Me EKG Comments: 12-lead Electrocardiogram Interpretation Note EKG was reviewed and interpreted by myself. 12-lead ECG performed at 2344 is interpreted by me as revealing normal sinus rhythm at a rate of 96 beats per minute. [place] is normal. [place] interval is 172 ms, QRS duration is 82 ms, QTc is 422 ms.. There were no ST or T wave abnormalities to suggest myocardial ischemia or injury. R wave progression across the precordium was satisfactory. By my interpretation this EKG is non-diagnostic for acute ischemia. No prior EKG for comparison. Critical Care Time Critical Care Time: Yes Total Critical Care Time: 35 Critical Care Time: Upon my evaluation, this patient had a high probability of imminent or life- threatening deterioration due to acute cholecystitis, concern for choledocholithiasis, transfer, which required my direct attention, intervention, and personal management. I have personally provided 35 minutes of critical care time exclusive of time sp ent on separately billable procedures. Time includes review of laboratory data, radiology results, discussion with consultants, and monitoring for potential decompensation. Interventions were performed as documented in my note. Disposition Clinical Impression: Cholecystitis, Choledocholithiasis Disposition: OTHER INSTITUTION NOT DEFINED Condition: Stable Referrals: None,Stated [Primary Care Provider] - 1-2 days Time of Disposition: 01:35 - Out of Hospital Transfer - Req. Specs Out of Hospital Transfer - Requested Specifics: Other Emergency Center (Transfer to [facility] for GI evaluation. Eval for ERCP.)
[2022-07-22 22:40] LABS: Basophils # (A) 0.1 k/uL (0-0.2); Basophils % (A) 0 %; Eosinophils # (A) 0.1 k/uL (0-0.7); Eosinophils % (A) 0 %; HCT 43.1 % (34.0-46.0); HGB 14.1 gm/dL (11.4-16.0); Lymphocytes # (A) 1.7 k/uL (1.0-4.8); Lymphocytes % (A) 10 %; MCH 26.3 pg (25.0-35.0); MCHC 32.7 g/dL (31.0-37.0); MCV 80.3 fL (80.0-100.0); Mean Platelet Volume 8.5; Monocytes # (A) 1.2 k/uL (0-1.0); Monocytes % (A) 8 %; Neutrophils # (A) 13.1 k/uL (1.3-7.7); Neutrophils % (A) 80 %; Platelet Count 352 k/uL (150-450); RBC 5.37 m/uL (3.80-5.40); RDW 14.2 % (11.5-15.5); WBC 16.3 k/uL (3.8-10.6)
[2022-07-22 22:47] LABS: ALT 220 U/L (4-34); AST 426 U/L (14-36); African American GFR (CKD) >90 (>60 ml/min/1.73 sqM); Albumin 4.7 g/dL (3.5-5.0); Alkaline Phosphatase 147 U/L (38-126); Amylase 49 U/L (30-110); Anion Gap 8 mmol/L; Blood Urea Nitrogen 23 mg/dL (7-17); Calcium 9.7 mg/dL (8.4-10.2); Carbon Dioxide 26 mmol/L (22-30); Chloride 106 mmol/L (98-107); Glucose 110 mg/dL (74-99); Lipase 94 U/L (23-300); Non-African American GFR(CKD) >90 (>60 ml/min/1.73 sqM); Potassium 3.9 mmol/L (3.5-5.1); Sodium 140 mmol/L (137-145); Total Bilirubin 0.9 mg/dL (0.2-1.3); Total Protein 7.3 g/dL (6.3-8.2)
[2022-07-22 22:54] LABS: Appearance,Urine Cloudy (Clear); Bacteria,Urine Moderate /hpf; Bilirubin,Urine Negative (Negative); Blood,Urine Negative (Negative); Color,Urine Yellow; Glucose,Urine (UA) Negative (Negative); Ketones,Urine 2+ (Negative); Leukocyte Esterase,Urine Large (Negative); Mucus,Urine Few /hpf; Nitrite,Urine Negative (Negative); Protein,Urine Trace (Negative); RBC,Urine 3 /hpf (0-5); Specific Gravity,Urine 1.032 (1.001-1.035); Squamous Epithelial Cell,Urine 6 /hpf (0-4); WBC,Urine 29 /hpf (0-5)
[2022-07-22 22:58] LABS: INR 0.9 (<1.2); Partial Thromboplastin Time 26.4 sec (22.0-30.0); Prothrombin Time 10.2 sec (9.0-12.0)
--- NOTE | 2022-07-22 23:04 | XR ---
EXAMINATION TYPE: XR chest 2V DATE OF EXAM: 07/22/2022 COMPARISON: NONE HISTORY: Epigastric pain TECHNIQUE: 2 views FINDINGS: Heart and mediastinum are normal. Lungs are clear. Diaphragm is normal. Bony thorax appears normal. IMPRESSION: Normal chest.
--- NOTE | 2022-07-22 23:32 | US ---
EXAMINATION TYPE: US gallbladder DATE OF EXAM: 07/22/2022 COMPARISON: NONE CLINICAL HISTORY: eval for cholecystitis. Epigastric pain x 48 hours with nausea and vomiting. TECHNIQUE: Multiple sonographic images of the right upper quadrant are obtained. FINDINGS: EXAM MEASUREMENTS: Liver Length: 16.1 cm Gallbladder Wall: 0.37 cm CBD: 0.94 cm Right Kidney: 10.8 x 3.9 x 4.1 cm [employer]ENT NOTES: Pancreas: Obscured by bowel gas Liver: Heterogneous Gallbladder: Multiple gallstones visualized, GB distended Evidence for sonographic Gaytan's sign: No CBD: Dilated Right Kidney: wnl IMPRESSION: There are multiple small gallstones. No dilated intrahepatic ducts. There is mild ectasia of the com mon bile duct that could relate to gallbladder dysfunction. Large gallbladder measuring 4.3 cm in fredo meter.
[2022-07-22] MEDS ORDERED: PIPERACILLIN-TAZOBACTAM 3.375 GM in SODIUM CHLORIDE 0.9% 100 ML IVPB STA (23:44)
--- NOTE | 2022-07-23 01:03 | CT ---
EXAMINATION TYPE: CT chest angio for PE DATE OF EXAM: 07/23/2022 COMPARISON: None HISTORY: Pt is three months post has elevated ddimer. CT DLP: 1343.8 mGycm Automated exposure control for dose reduction was used. CONTRAST: Performed with IV Contrast, patient injected with 100 mL of Isovue 370. There are 3-D post processed images. There is no mediastinal adenopathy. Thoracic aorta is intact. No aneurysm or dissection. There are no hilar masses. Heart size is normal. No pericardial effusion. There is normal contrast opacification of the pulmonary arteries. No filling defect. No pleural effus ion. The lungs are clear of infiltrate. The thoracic spine is intact. Sternum is intact. IMPRESSION: Normal exam. No evidence of pulmonary embolism.
--- NOTE | 2022-07-23 01:14 | CT ---
EXAMINATION TYPE: CT abdomen pelvis w con DATE OF EXAM: 07/23/2022 COMPARISON: HISTORY: Pt is three months post has elevated ddimer. CT DLP: 1343.8 mGycm Automated exposure control for dose reduction was used. CONTRAST: Performed with IV Contrast, patient injected with 100 mL of Isovue 370. Images obtained from the diaphragm to the floor of the pelvis with IV contrast. Liver and spleen are intact. There is some mild periportal edema. Gallbladder is large and measures 4 cm in diameter with some mild pericholecystic fluid. There is no evidence of pancreatic mass. [place] h is intact. There is no adrenal mass. Kidneys show satisfactory contrast opacification. No hydronephrosis. Delaye d images show normal renal excretion. The bladder distends smoothly. No free fluid in the pelvis. The re is 2.8 cm cyst on the right ovary. The lumbar vertebra have normal alignment. Posterior elements are intact with no compression fracture . Facet joints are intact. Bony pelvis is intact. The hip joints are intact. Appendix not seen. No si gn thickened appendix. There is no mesenteric edema. No ascites or free air. No sign of a bowel obstruction. IMPRESSION: Mild pericholecystic fluid and mildly dilated gallbladder suggestive of cholecystitis. Mild periporta l edema. This is nonspecific and can relate to hepatitis.
[2022-07-23] MEDS ORDERED: SODIUM CHLORIDE 0.9% 1,000 ML IV STA (01:33)
[2022-07-23 01:59] VITALS: BP 122/55; PULSE 65; RESP 16
== END 2022-07-23 03:53 | disposition other institution (70) ==
LOC: EC 19:37
DX: K80.40 Calculus of bile duct with cholecystitis, unspecified, without obstruction (principal)
CPT/HCPCS: 99291; 96365; 96366; 96375 ×2; 96361 ×3; 36415; 93005; 85379; 80053; 82150; 83605; 83690; 84484; 85025; 85610; 85730; 81001; 87086; 71046; 76705; 71275; 74177; J2543; J2405; C9113; Q9967